=== PATIENT | female | born 1950 | race Caucasian/White ===

== ENCOUNTER → 2017-05-24 | Outpatient (CLI) | payer BC ==
--- NOTE | 2017-05-28 06:58 | MM ---
Reason for exam: screening (asymptomatic). Last mammogram was performed 1 year ago. History: Patient is postmenopausal. Took estrogen for 2 months beginning at age 50. Physical Findings: A clinical breast exam by your physician is recommended on an annual basis and results should be correlated with mammographic findings. MG Screening Mammo w CAD Bilateral CC and MLO view(s) were taken. Prior study comparison: May 23, 2016, bilateral MG screening mammo w CAD. March 18, 2015, bilateral MG screening mammo w CAD. The breast tissue is almost entirely fat. No significant changes when compared with prior studies. ASSESSMENT: Benign, BI-RAD 2 RECOMMENDATION: Routine screening mammogram of both breasts in 1 year.
== END | disposition home or self-care (01) ==
LOC: RADMAMWWP 07:01
PROVIDERS: ATTEND Internal Medicine Geriatric Medicine
DX: Z12.31 Encounter for screening mammogram for malignant neoplasm of breast (principal)

== ENCOUNTER → 2018-06-02 | Outpatient (CLI) | payer MEDICARE ==
--- NOTE | 2018-06-04 11:59 | MM ---
Reason for exam: screening (asymptomatic). Last mammogram was performed 1 year ago. History: Patient is postmenopausal. Took estrogen for 2 months beginning at age 50. Physical Findings: A clinical breast exam by your physician is recommended on an annual basis and results should be correlated with mammographic findings. MG 3D Screening Mammo W/Cad Bilateral CC and MLO view(s) were taken. Prior study comparison: May 24, 2017, bilateral MG screening mammo w CAD. May 23, 2016, bilateral MG screening mammo w CAD. There are scattered fibroglandular densities. No suspicious abnormality. No significant changes when compared with prior studies. ASSESSMENT: Negative, BI-RAD 1 RECOMMENDATION: Routine screening mammogram of both breasts in 1 year.
== END | disposition home or self-care (01) ==
LOC: RADMAMWWP 07:33
PROVIDERS: ATTEND Obstetrics & Gynecology
DX: Z12.31 Encounter for screening mammogram for malignant neoplasm of breast (principal)
CPT/HCPCS: 77063; 77067

== ENCOUNTER → 2019-06-08 | Outpatient (CLI) | payer MEDICARE ==
--- NOTE | 2019-06-09 10:45 | MM ---
Reason for exam: screening (asymptomatic). Last mammogram was performed 1 year ago. History: Patient is postmenopausal. Took estrogen for 2 months beginning at age 50. Physical Findings: A clinical breast exam by your physician is recommended on an annual basis and results should be correlated with mammographic findings. MG 3D Screening Mammo W/Cad Bilateral CC and MLO view(s) were taken. Prior study comparison: June 02, 2018, bilateral MG 3d screening mammo w/cad. May 24, 2017, bilateral MG screening mammo w CAD. There are scattered fibroglandular densities. No suspicious abnormality. No significant changes when compared with prior studies. ASSESSMENT: Negative, BI-RAD 1 RECOMMENDATION: Routine screening mammogram of both breasts in 1 year.
== END | disposition home or self-care (01) ==
LOC: RADMAMWWP 07:47
PROVIDERS: ATTEND Obstetrics & Gynecology
DX: Z12.31 Encounter for screening mammogram for malignant neoplasm of breast (principal)
CPT/HCPCS: 77063; 77067

== ENCOUNTER → 2019-06-11 | Outpatient (CLI) | payer MEDICARE ==
--- NOTE | 2019-06-11 22:00 | XR ---
EXAMINATION TYPE: XR chest 2V DATE OF EXAM: 06/11/2019 COMPARISON: NONE HISTORY: Cough. Bronchitis per order. TECHNIQUE: Frontal and lateral views of the chest are obtained. FINDINGS: There is no focal air space opacity, pleural effusion, or pneumothorax seen. The cardiac silhouette size is within normal limits. The osseous structures are intact. IMPRESSION: No suspicious acute pulmonary process.
== END | disposition home or self-care (01) ==
LOC: RADXRMAIN 16:20
PROVIDERS: ATTEND Internal Medicine Geriatric Medicine
DX: J40 Bronchitis, not specified as acute or chronic (principal)
CPT/HCPCS: 71046

== ENCOUNTER → 2019-07-10 | Outpatient (CLI) | payer MEDICARE ==
[2019-07-10 16:35] LABS: Albumin 4.8 g/dL (3.80-4.90); Albumin/Globulin Ratio 2.4 (1.60-3.17); Anion Gap 9.7 mmol/L (4.00-12.00); BUN/Creat Ratio 27.5 Ratio (12.00-20.00); Calcium 10.5 mg/dL (8.7-10.3); Carbon Dioxide 26.3 mmol/L (21.6-31.8); Chol/HDL Ratio 4.62; LDL Cholesterol,Calculated 98.8 mg/dL (0.0-131.0); Non-African American GFR(CKD) 76.8 (60.0-200.0); Potassium 4.2 mmol/L (3.5-5.5); Total Bilirubin 0.5 mg/dL (0.2-1.2); Total Protein 6.8 g/dL (6.2-8.2); VLDL Calculation 35.2 mg/dL (5.00-40.00)
[2019-07-10 17:12] LABS: Hemoglobin A1C 5.8 % (4.0-6.0)
== END | disposition home or self-care (01) ==
LOC: LABWHC1 08:41
PROVIDERS: ATTEND Internal Medicine Geriatric Medicine
DX: Z00.00 Encounter for general adult medical examination without abnormal findings (principal); E78.2 Mixed hyperlipidemia; E83.52 Hypercalcemia; E03.9 Hypothyroidism, unspecified; R73.9 Hyperglycemia, unspecified
CPT/HCPCS: 36415; 80053; 80061; 82550; 83036; 83970; 84443

== ENCOUNTER → 2020-02-09 | Outpatient (CLI) | payer MEDICARE ==
--- NOTE | 2020-02-09 08:37 | US ---
EXAMINATION TYPE: US abdomen complete DATE OF EXAM: 02/09/2020 COMPARISON: US 2013 CLINICAL HISTORY: K80.50 Calculus of bile duct without cholangitis. Patient states Dr. Jones said she has an enlarged gallbladder, patient states no abdomen pain or other symptoms. EXAM MEASUREMENTS: Liver Length: 15.9 cm Gallbladder Wall: 0.2 cm CBD: 0.4 cm Spleen: 12.3 cm Right Kidney: 9.0 x 4.9 x 5.1 cm Left Kidney: 10.9 x 5.2 x 5.6 cm Pancreas: visualized portions wnl, limited by overlying midline bowel gas Liver: attenuating, increased echogenicity with decreased visualization of vessels suggestive of fat ty infiltrate, heterogeneous with 1.6cm hypoechoic area adjacent to gallbladder, probable focal sparr ing Gallbladder: low level echoes seen within dependant portion possible sludge. Evidence for sonographic Ghosh's sign: no CBD: visualized portions wnl, limited by overlying bowel gas Spleen: wnl Right Kidney: wnl Left Kidney: wnl Upper IVC: wnl Abd Aorta: wnl The visualized liver is heterogeneously hyperechoic similar to prior. Evaluation for focal masses sub optimal due to the heterogeneity. Finding likely an basis of diffuse fatty infiltration. The intrahep atic portion of the IVC and visualized abdominal aorta are within normal limits. There is no evidenc e of shadowing mobile cholelithiasis. No suspicious gallbladder dilatation. Common bile duct is unre markable. The visualized portions of the pancreas are homogenous. The spleen is unremarkable. Kidn eys are symmetric and free of hydronephrosis. No renal lesions are seen. IMPRESSION: No suspicious distention of gallbladder or shadowing mobile gallstones. Fatty infiltratio n of liver redemonstrated.
[2020-02-09 08:38] LABS: Basophils # (A) 0.1 k/uL (0-0.2); Basophils % (A) 1 %; Eosinophils # (A) 0.2 k/uL (0-0.7); Eosinophils % (A) 3 %; HCT 44.7 % (34.0-46.0); HGB 14.5 gm/dL (11.4-16.0); Lymphocytes # (A) 2.8 k/uL (1.0-4.8); Lymphocytes % (A) 43 %; MCH 28.7 pg (25.0-35.0); MCHC 32.6 g/dL (31.0-37.0); MCV 88.1 fL (80.0-100.0); Mean Platelet Volume 8.7; Monocytes # (A) 0.3 k/uL (0-1.0); Monocytes % (A) 4 %; Neutrophils % (A) 46 %; Platelet Count 228 k/uL (150-450); RBC 5.07 m/uL (3.80-5.40); WBC 6.5 k/uL (3.8-10.6)
[2020-02-09 08:56] LABS: ALT 45 U/L (4-34); AST 39 U/L (14-36); African American GFR (CKD) >90 (>60 ml/min/1.73 sqM); Albumin 4.5 g/dL (3.5-5.0); Alkaline Phosphatase 37 U/L (38-126); Anion Gap 11 mmol/L; Blood Urea Nitrogen 19 mg/dL (7-17); Calcium 9.6 mg/dL (8.4-10.2); Carbon Dioxide 26 mmol/L (22-30); Chloride 104 mmol/L (98-107); Glucose 118 mg/dL (74-99); Non-African American GFR(CKD) >90 (>60 ml/min/1.73 sqM); Potassium 4.5 mmol/L (3.5-5.1); Sodium 141 mmol/L (137-145); Total Bilirubin 0.5 mg/dL (0.2-1.3); Total Protein 7.3 g/dL (6.3-8.2)
[2020-02-09 09:12] LABS: T4, Free (Free Thyroxine) 0.94 ng/dL (0.78-2.19)
== END | disposition home or self-care (01) ==
LOC: RADUSWWP 07:27
PROVIDERS: ATTEND Internal Medicine Geriatric Medicine
DX: K76.0 Fatty (change of) liver, not elsewhere classified (principal); K80.50 Calculus of bile duct without cholangitis or cholecystitis without obstruction; E03.9 Hypothyroidism, unspecified
CPT/HCPCS: 36415; 76700; 80053; 83036; 84439; 84443; 85025

== ENCOUNTER → 2020-06-08 | Outpatient (CLI) | payer MEDICARE ==
--- NOTE | 2020-06-08 15:09 | BD ---
EXAMINATION TYPE: Axial Bone Density DATE OF EXAM: 06/08/2020 COMPARISON: 05/23/2016 CLINICAL HISTORY: Osteoporosis border. Postmenopausal female. Height: 66.5 IN Weight: 208 LBS FRAX RISK QUESTIONS: Secondary Osteoporosis: 5. Chronic liver disease: PREVIOUS HEPATITIS 1977 RISK FACTORS HISTORY OF: History of Wrist Fracture: SANDIP AGE 10 Family History of Osteoporosis: YES MOTHER Active: YES Postmenopausal woman: TOTAL HYST AGE 52 MEDICATIONS: Additional Medications: VIT D, ENALAPRIL INDAPAMIDE, ATORVASTATIN, FISH OIL,PROBIOTIC, BIOTIN, CENTRU M, EXAM MEASUREMENTS: Bone mineral densitometry was performed using the Flowboard System. Bone mineral density as measured about the Lumbar spine is: ----- L1-L4(G/cm2): 1.391 T Score Values are as follows: ----- L2: 0.7 ----- L3: 2.2 ----- L4: 2.3 ----- L1-L4: 1.8 Bone mineral density has: Increased 0.2% since study of: 05/23/2016 Bone mineral density about the R hip (g/cm2): 1.073 Bone mineral density about the L hip (g/cm2): 1.131 T Score values are as follows: -----R Neck: 0.2 -----L Neck: 0.7 -----R Total: 1.5 -----L Total: 2.0 Bone mineral density has: Decreased -1.7% since study of: 05/23/2016 IMPRESSION: Normal (Values between +1 and -1 indicate normal bone mass). Consider repeating this study in 5 year s or sooner if there is some new clinical indication. NOTE: T-SCORE=SD OF THE YOUNG ADULT MEAN.
== END | disposition home or self-care (01) ==
LOC: RADBDWWP 08:33
PROVIDERS: ATTEND Internal Medicine Geriatric Medicine
DX: M81.0 Age-related osteoporosis without current pathological fracture (principal)
CPT/HCPCS: 77080

== ENCOUNTER → 2020-06-13 | Outpatient (CLI) | payer MEDICARE ==
--- NOTE | 2020-06-14 10:38 | MM ---
Reason for exam: screening (asymptomatic). Last mammogram was performed 1 year ago. History: Patient is postmenopausal. Took estrogen for 2 months beginning at age 50. Physical Findings: A clinical breast exam by your physician is recommended on an annual basis and results should be correlated with mammographic findings. MG 3D Screening Mammo W/Cad Bilateral CC and MLO view(s) were taken. Prior study comparison: June 08, 2019, bilateral MG 3d screening mammo w/cad. June 02, 2018, bilateral MG 3d screening mammo w/cad. There are scattered fibroglandular densities. Finding #1: There is a 5 mm equal density (isodense), lobulated mass in the lower outer quadrant of the left breast. Finding #2: There are typically benign calcifications. There is a chronic nodularity bilaterally, stable. ASSESSMENT: Incomplete: need additional imaging evaluation, BI-RAD 0 RECOMMENDATION: Special view mammogram of the left breast. If lesion persists on supplemental views, image directed ultrasound is recommended. [facility] will attempt to contact patient to return for supplemental views and ultrasound if indicated.
== END | disposition home or self-care (01) ==
LOC: RADMAMWWP 09:33
PROVIDERS: ATTEND Obstetrics & Gynecology
DX: Z12.31 Encounter for screening mammogram for malignant neoplasm of breast (principal)
CPT/HCPCS: 77063; 77067

== ENCOUNTER → 2020-06-22 | Outpatient (CLI) | payer MEDICARE ==
--- NOTE | 2020-06-23 08:58 | MM ---
Reason for exam: additional evaluation requested from abnormal screening. Last mammogram was performed less than 1 month ago. History: Patient is postmenopausal. Took estrogen for 2 months beginning at age 50. Physical Findings: Nurse did not find any significant physical abnormalities on exam. MG 3D Work Up W/Cad LT Spot compression CC, spot compression MLO, and LM view(s) were taken of the left breast. Prior study comparison: June 13, 2020, bilateral MG 3d screening mammo w/cad. June 08, 2019, bilateral MG 3d screening mammo w/cad. There are scattered fibroglandular densities. Finding: There is an equal density (isodense), circumscribed lobulated mass located 3 cm from the nipple in the outer quadrant, anterior position of the left breast CC view. New finding since June 08, 2019. These results were verbally communicated with the patient and result sheet given to the patient on 06/22/20. ASSESSMENT: Incomplete: need additional imaging evaluation, BI-RAD 0 RECOMMENDATION: Ultrasound of the left breast.
--- NOTE | 2020-06-23 09:00 | USB ---
Reason for exam: additional evaluation requested from abnormal screening. History: Patient is postmenopausal. Took estrogen for 2 months beginning at age 50. US Breast Workup Limited LT Left limited breast ultrasound including focal area of concern, retroareolar and axilla demonstrates a 5 x 3 x 4mm oval, isoechoic, solid lesion at 3 o'clock. These results were verbally communicated with the patient and result sheet given to the patient on 06/22/20. ASSESSMENT: Suspicious, BI-RAD 4 RECOMMENDATION: Ultrasound core biopsy of the left breast. (3 o'clock zone A) Called Dr. Salter's office with mammographic findings and has scheduled an appointment for the patient for 07/27/20 at 7:[address] Cristina. Biopsy scheduled for 07/04/20 at 1:00. PRELIMINARY REPORT CALLED AND FAXED TO DR. CRISTINA ON 06/23/20.
== END | disposition home or self-care (01) ==
LOC: RADMAMWWP 13:27
PROVIDERS: ATTEND Obstetrics & Gynecology
DX: R92.8 Other abnormal and inconclusive findings on diagnostic imaging of breast (principal)
CPT/HCPCS: 77065; 76642; G0279; 77061

== ENCOUNTER → 2020-07-04 | Day surgery (SDC) | payer MEDICARE ==
[2020-07-04 12:33] VITALS: RESP 16
[2020-07-04 14:23] VITALS: BP 119/81; PULSE 72; TEMP 98
--- NOTE | 2020-07-04 16:09 | USB ---
EXAMINATION TYPE: US biopsy breast VAD LT, MG diagnostic mammo LT wo CAD DATE OF EXAM: 07/04/2020 CLINICAL HISTORY: R92.8 ABN MAMMO. TECHNIQUE: Ultrasound guided core biopsy of left 3:00 breast. COMPARISON: NONE FINDINGS: The procedure of ultrasound guided core biopsy was explained to the patient. Benefits, alternatives, and risks were discussed. An informed consent was then obtained. The patient was placed in supine positioning for imaging and for the procedure. The overlying skin was prepped and draped in usual sterile fashion. Lidocaine buffered with bicarbonate was used as anesthetic into the skin and subcutaneous tissue up to area of concern in the left 3:00 breast. Under ultrasound guidance, a 12-gauge vacuum assisted biopsy gun device was used to obtain 4 core samples. Following this, a biopsy clip was left in lesion. Post procedural mammogram demonstrates appropriate deployment of clip device. The patient tolerated the procedure well without any immediate complication. The patient was kept in the radiology department for short stay after the procedure and then discharged home in stable condition. IMPRESSION: Successful, uncomplicated ultrasound guided core biopsy of area of concern in the left 3:00 breast, full pathology results to follow. Pathology Results: Malignant LEFT BREAST, CORE BIOPSY: Mucinous ductal adenocarcinoma, Grade 1 (see Surgical Pathology Cancer Case Summary and comment). Intermediate grade DCIS present. Recommendation Therapy and follow up as indicated. MTDD
== END ==
LOC: RADUSWWP 11:57
PROVIDERS: ATTEND Surgery
DX: C50.812 Malignant neoplasm of overlapping sites of left female breast (principal); Z17.0 Estrogen receptor positive status [ER+]; Z88.2 Allergy status to sulfonamides
CPT/HCPCS: 88305; 88342; 88341; 77065; 19083; A4648; J2001

== ENCOUNTER → 2020-09-21 | Outpatient (CLI) | payer MEDICARE ==
--- NOTE | 2020-09-21 20:47 | EST ---
EXERCISE STRESS DATE OF SERVICE: September 21, 2020. INDICATION Chest pain. AGE: 69 SEX: F HT: 5'7 " WT: 195 lbs. PROTOCOL: Isak STAGE: 2 DURATION OF EXERCISE: 5:59 HEART RATE REST: 90 BLOOD PRESSURE REST: 155/96 MAXIMUM HEART RATE ACHIEVED: 159 MAXIMUM BLOOD PRESSURE: 193/97 85% MPHR: 130 100% MPHR: 153 METS: 7.1 STRESS DATA: Heart rate 90. Pressure is 155/96 mmHg. Baseline EKG showed sinus mechanism. The patient exercised on the treadmill according to Isak protocol for a total of 5 minutes and 59 seconds and achieved 7.1 METS. Max heart rate was 159, which is about 104% of maximum predicted heart rate and maximum blood pressure was 209/85 mmHg. Clinically, the patient did not have any symptoms of chest pain or chest discomfort and the EKG did not show any significant ST or T-wave abnormalities concerning for ischemia. On recovery, the patient did have about 0.[address]-segment changes. CONCLUSION: 1. Average exercise tolerance. 2. Mild EKG changes in response to exercise. MMODL / IJN: [id number] /
== END | disposition home or self-care (01) ==
LOC: RADNMMAIN 08:28
PROVIDERS: ATTEND Thoracic Surgery (Cardiothoracic Vascular Surgery)
DX: R07.9 Chest pain, unspecified (principal)
CPT/HCPCS: 93017

== ENCOUNTER → 2020-10-24 | Outpatient (CLI) | payer MEDICARE ==
[2020-10-24 11:27] LABS: African American GFR (CKD) >90 (>60 ml/min/1.73 sqM); Blood Urea Nitrogen 16 mg/dL (7-17); Non-African American GFR(CKD) >90 (>60 ml/min/1.73 sqM)
--- NOTE | 2020-10-27 15:05 | CT ---
EXAMINATION TYPE: CT chest w con DATE OF EXAM: 10/24/2020 COMPARISON: CT chest from outside institution dated 07/27/2020 HISTORY: follow up lung nodule CT DLP: 526.2 mGycm Automated exposure control for dose reduction was used. CONTRAST: CT scan of the chest is performed with IV Contrast, patient injected with 100 mL of Isovue 300. FINDINGS: The left thyroid is absent as on prior exam, right thyroid shows some associated calcificat ions, heterogeneous density similar to prior LUNGS: The lungs are stable, nodule posterior to the left heart shows smooth margins and measures edison roximately 17 mm in greatest AP dimension and is likely unchanged accounting for technique. Additiona l nodularity in the right lung is also stable, axial image #30 not mentioned on prior report, axial i mage #33 shows a 7 mm nodule, subpleural nodule described in prior report in the right upper chest is not well seen. There is no pleural effusion or pneumothorax seen. The tracheobronchial tree is simmons nt. MEDIASTINUM: There are no greater than 1 cm hilar or mediastinal lymph nodes. No pericardial effusi on is seen. There is some prominence of pulmonary artery, consider pulmonary artery hypertension, AORTA: No additional significant abnormality is seen. OTHER: Left breast mass with associated surgical clips are present, liver shows low attenuation poss ibly due to hepatic steatosis. Left axillary node dissection changes are present. IMPRESSION: Indeterminate pulmonary nodules. Postop changes. Additional findings above.
== END | disposition home or self-care (01) ==
LOC: RADCTMAIN 10:38
PROVIDERS: ATTEND Internal Medicine Hematology & Oncology
DX: C50.412 Malignant neoplasm of upper-outer quadrant of left female breast (principal); R91.8 Other nonspecific abnormal finding of lung field; I10 Essential (primary) hypertension
CPT/HCPCS: 82565; 84520; 71260; 36415; Q9967

== ENCOUNTER → 2021-02-07 | Outpatient (CLI) | payer MEDICARE ==
--- NOTE | 2021-02-07 09:26 | CT ---
EXAMINATION TYPE: CT chest wo con DATE OF EXAM: 02/07/2021 COMPARISON: Chest CT October 24, [address] July 27, 2020 HISTORY: Left-sided breast cancer treated October [address] DLP: 651 mGycm. Automated Exposure Control for Dose Reduction was Utilized. TECHNIQUE: CT scan of the thorax is performed without IV contrast. FINDINGS: LUNGS: Fairly stable 1.4 x 1.1 cm medial left lower lobe nodule axial image 33 from prior studies. Li near scarring or atelectasis lateral to this is with slightly more nodular thickening that contains s ome calcification or possibly some sutures near Axial image 32. Correlate clinically. Right lung howard ins clear. Stable 5 to 6 mm right central nodule mid to lower aspect axial image 30. New smaller ante rior right lower lung nodule axial image 29 measure up to 4 mm. MEDIASTINUM: Lack of IV contrast is noted to limit evaluation for mediastinal and especially hilar ad enopathy. There are no definitive new greater than 1 cm mediastinal lymph nodes. No cardiomegaly or pericardial effusion is seen. Persistent ascending aortic aneurysm up to 4.2 cm axial image 21. Mild -to-moderate aortic calcification. OTHER: Liver diffusely low dense consistent with diffuse fatty infiltration. Slight scoliotic curvatu re with mild/moderate multilevel spurring in the spine. Surgical clips with central low density favor ing postsurgical seroma left breast. Asymmetric left-sided skin thickening presumed posttreatment jyotsna nge. Surgical changes left axillary region redemonstrated. IMPRESSION: Stable dominant nodules. New smaller right basilar nodules are suspicious. Left basilar findings of indeterminate etiology. Continued short-term CT and/or PET CT follow-up advised.
== END | disposition home or self-care (01) ==
LOC: RADCTMAIN 08:57
PROVIDERS: ATTEND Thoracic Surgery (Cardiothoracic Vascular Surgery)
DX: R91.8 Other nonspecific abnormal finding of lung field (principal); Z85.3 Personal history of malignant neoplasm of breast
CPT/HCPCS: 71250

== ENCOUNTER 2021-03-17 10:11 | Day surgery (SDC) | payer MEDICARE ==
[2021-03-15 12:59] VITALS: BMI 29.6
[~2021-03-17 10:11] MED LIST: LACTATED RINGERS 1,000 ML IV SCH
[2021-03-17 10:31] VITALS: TEMP 97.4
[2021-03-17] MEDS ORDERED: LIDOCAINE 1% INJ 10MG/ML (20 ML MDV) ONE (11:44)
[2021-03-17] MEDS ORDERED: PROPOFOL 10 MG/ML 20 ML VIAL IV ONE (11:44)
--- NOTE | 2021-03-17 12:04 | P.PCN ---
Date of Procedure: 03/17/21 Procedure(s) Performed: BRIEF HISTORY: Patient is a 70-year-old pleasant white female scheduled for an elective colonoscopy as a part of evaluation of prior history of colon polyps. PROCEDURE PERFORMED: Colonoscopy. PREOPERATIVE DIAGNOSIS: History of colon polyps. IV sedation per Anesthesia. PROCEDURE: After informed consent was obtained, the patient, was brought into the endoscopy unit. IV sedation was administered by Anesthesia under continuous monitoring. Digital rectal examination was normal. Initially the Olympus CF-160 flexible video colonoscope was then inserted in the rectum, gradually advanced into the cecum without any difficulty. Careful examination was performed as the scope was gradually being withdrawn. Ileocecal valve and the appendiceal orifice were visualized and appeared normal. Prep was excellent. Mucosa of the cecum, ascending colon appeared normal. In the transverse colon there was a 3-4 mm polyp that was removed by cold biopsy. Rest of the, transverse colon, descending colon, sigmoid colon, and rectum appeared normal. Sigmoid diverticulosis seen. Retroflexion was performed in the rectum and no lesions were seen. The patient tolerated the procedure well. IMPRESSION: 3-4 mm polyp in the transverse colon status post biopsy Moderate sigmoid diverticulosis RECOMMENDATIONS: Findings of this examination were discussed with the patient as well as her family. She was advised to follow with the biopsy results. If the biopsy reveals adenoma she can have a repeat colonoscopy in 5 years.
[2021-03-17 12:28] VITALS: BP 117/79; PULSE 56; RESP 16
== END 2021-03-17 12:55 | disposition home or self-care (01) ==
LOC: ORWHC2ENDO 10:11
PROVIDERS: ATTEND Internal Medicine Gastroenterology
DX: Z12.11 Encounter for screening for malignant neoplasm of colon (principal); K63.5 Polyp of colon; K57.30 Diverticulosis of large intestine without perforation or abscess without bleeding; Z86.010 Personal history of colon polyps; I10 Essential (primary) hypertension; E78.5 Hyperlipidemia, unspecified; Z90.710 Acquired absence of both cervix and uterus; Z98.890 Other specified postprocedural states; Z85.3 Personal history of malignant neoplasm of breast; E89.0 Postprocedural hypothyroidism; Z79.899 Other long term (current) drug therapy; Z88.2 Allergy status to sulfonamides
CPT/HCPCS: 88305; 45380; J2001; J2704

== ENCOUNTER → 2021-05-01 | Outpatient (CLI) | payer MEDICARE ==
[2021-05-01 15:17] LABS: ALT 53 U/L (8-44); AST 36 U/L (13-35); African American GFR (CKD) 106.3 (60.0-200.0); Albumin 4.6 g/dL (3.8-4.9); Albumin/Globulin Ratio 1.57 (1.60-3.17); Alkaline Phosphatase 42 U/L (41-126); BUN/Creat Ratio 24.53 Ratio (12.00-20.00); Blood Urea Nitrogen 15.7 mg/dL (9.0-27.0); Chloride 101 mmol/L (96-109); Chol/HDL Ratio 5.72 Ratio; Globulin 2.9 g/dL (1.6-3.3); Glucose 100 mg/dL (70-110); LDL Cholesterol,Calculated 111.5 mg/dL (0.0-131.0); Non-African American GFR(CKD) 91.7 (60.0-200.0); Potassium 4.5 mmol/L (3.5-5.5); Sodium 138 mmol/L (135-145); Total Protein 7.5 g/dL (6.2-8.2)
[2021-05-01 15:41] LABS: Basophils # (A) 0.06 X 10*3/uL (0.00-0.10); Basophils % (A) 0.9 %; Eosinophils # (A) 0.23 X 10*3/uL (0.04-0.35); Eosinophils % (A) 3.6 %; HCT 42.7 % (37.2-46.3); HGB 13.6 g/dL (12.0-15.0); Lymphocytes # (A) 2.54 X 10*3/uL (0.90-5.00); Lymphocytes % (A) 39.4 %; MCH 28.5 pg (27.0-32.0); MCHC 31.9 g/dL (32.0-37.0); MCV 89.5 fL (80.0-97.0); Mean Platelet Volume 11.5 fL (9.5-12.2); Monocytes # (A) 0.44 X 10*3/uL (0.20-1.00); Monocytes % (A) 6.8 %; Neutrophils # (A) 3.12 X 10*3/uL (1.80-7.70); Neutrophils % (A) 48.5 %; Platelet Count 332 X 10*3/uL (140-440); RBC 4.77 X 10*6/uL (4.10-5.20); RDW 13.3 % (11.5-14.5); WBC 6.44 X 10*3/uL (4.50-10.00)
== END | disposition home or self-care (01) ==
LOC: LABWHC1 10:09
PROVIDERS: ATTEND Internal Medicine Geriatric Medicine
DX: Z00.00 Encounter for general adult medical examination without abnormal findings (principal); E78.2 Mixed hyperlipidemia; R73.9 Hyperglycemia, unspecified; R91.1 Solitary pulmonary nodule
CPT/HCPCS: 36415; 80053; 80061; 83036; 84443; 85025

== ENCOUNTER → 2021-05-16 | Outpatient (CLI) | payer MEDICARE ==
--- NOTE | 2021-05-16 08:21 | CT ---
EXAMINATION TYPE: CT chest wo con DATE OF EXAM: 05/16/2021 COMPARISON: 02/07/2021 HISTORY: H/O Breast CA CT DLP: 454.40 mGycm. Automated Exposure Control for Dose Reduction was Utilized. TECHNIQUE: CT scan of the thorax is performed without IV contrast. FINDINGS: LUNGS: The previously noted 1.4 x 1.1 cm left lower lobe pulmonary nodule measures 1.8 x 1.0 cm. Adjacent ar eas of subsegmental calcification, nodularity and consolidation are similar to the prior exam. There is a stable 5 to 6 mm right mid to lower lung pulmonary nodule unchanged from prior exam. 4 mm nodule anterior right upper lobe also appears stable. No pleural effusion or pneumothorax. Additional areas of subsegmental consolidation left lower lobe is most typical of atelectasis. Additional 2 mm nodule anterior segment right upper lobe stable MEDIASTINUM: Lack of IV contrast is noted to limit evaluation for mediastinal and especially hilar ad enopathy. There are no definitive greater than 1 cm hilar or mediastinal lymph nodes. Coronary artery calcification noted. Heart size mildly enlarged. OTHER: Right lobe of thyroid appears enlarged with calcification. Skin thickening and abnormal densit y or mass in left breast similar to prior exam. Attenuation involving caudate lobe of the liver may r epresent an area of focal fatty sparing similar to prior exam. Hypertrophic and degenerative changes spine.. IMPRESSION: 1. Left lower lobe the nodule previously measured 1.4 cm in greatest axis and now measures 1.8 cm com patible with mild interval increase in size. 2. Right-sided pulmonary nodules measuring subcentimeter in size stable. No new nodules. There are 3 skin thickening and abnormal attenuation involving the left breast stable from prior exam correlate f or history of previous surgery or mass.
== END | disposition home or self-care (01) ==
LOC: RADCTMAIN 06:49
PROVIDERS: ATTEND Thoracic Surgery (Cardiothoracic Vascular Surgery)
DX: R91.8 Other nonspecific abnormal finding of lung field (principal); Z85.3 Personal history of malignant neoplasm of breast
CPT/HCPCS: 71250

== ENCOUNTER → 2021-05-30 | Outpatient (CLI) | payer MEDICARE ==
[2021-05-30 19:21] LABS: African American GFR (CKD) 108.5 (60.0-200.0); Albumin 4.5 g/dL (3.8-4.9); Albumin/Globulin Ratio 1.88 (1.60-3.17); Anion Gap 13.1 mmol/L (10.00-18.00); Carbon Dioxide 25.9 mmol/L (20.0-27.5); Globulin 2.4 g/dL (1.6-3.3); Non-African American GFR(CKD) 93.7 (60.0-200.0); Total Bilirubin 0.3 mg/dL (0.30-1.20); Total Protein 6.9 g/dL (6.2-8.2)
== END | disposition home or self-care (01) ==
LOC: LABWHC1 11:07
PROVIDERS: ATTEND Internal Medicine Geriatric Medicine
DX: E83.52 Hypercalcemia (principal)
CPT/HCPCS: 36415; 80053; 83970

== ENCOUNTER → 2022-02-06 | Outpatient (CLI) | payer MEDICARE | END | disposition home or self-care (01) | LOC: LABWHC1 12:03 | PROVIDERS: ATTEND Internal Medicine Geriatric Medicine | DX: C50.912 Malignant neoplasm of unspecified site of left female breast (principal); K76.0 Fatty (change of) liver, not elsewhere classified; R73.9 Hyperglycemia, unspecified; E78.2 Mixed hyperlipidemia; K58.9 Irritable bowel syndrome, unspecified | CPT/HCPCS: 36415; 80053; 80061; 83036; 84443; 85025 ==

== ENCOUNTER → 2022-02-12 | Outpatient (CLI) | payer MEDICARE ==
[2022-02-12 14:46] LABS: Basophils # (A) 0.04 X 10*3/uL (0.00-0.10); Basophils % (A) 0.6 %; Eosinophils # (A) 0.18 X 10*3/uL (0.04-0.35); Eosinophils % (A) 2.9 %; HCT 42.5 % (37.2-46.3); HGB 14.2 g/dL (12.0-15.0); Immature Grans, Automated 0.5 %; Lymphocytes # (A) 2.19 X 10*3/uL (0.90-5.00); Lymphocytes % (A) 35.5 %; MCH 29.6 pg (27.0-32.0); MCHC 33.4 g/dL (32.0-37.0); MCV 88.7 fL (80.0-97.0); Monocytes # (A) 0.48 X 10*3/uL (0.20-1.00); Monocytes % (A) 7.8 %; NRBC Per 100 WBC 0 /100 WBCS (0.0-0.0); Neutrophils # (A) 3.25 X 10*3/uL (1.80-7.70); Neutrophils % (A) 52.7 %; Platelet Count 248 X 10*3/uL (140-440); RBC 4.79 X 10*6/uL (4.10-5.20); RDW 13.8 % (11.5-14.5); WBC 6.17 X 10*3/uL (4.50-10.00)
[2022-02-12 14:56] LABS: ALT 51 U/L (8-44); AST 38 U/L (13-35); African American GFR (CKD) 102.5 (60.0-200.0); Albumin 4.7 g/dL (3.8-4.9); Albumin/Globulin Ratio 1.68 (1.60-3.17); Alkaline Phosphatase 40 U/L (41-126); BUN/Creat Ratio 21.71 Ratio (12.00-20.00); Blood Urea Nitrogen 15.2 mg/dL (9.0-27.0); Calcium 10.1 mg/dL (8.7-10.3); Chloride 100 mmol/L (96-109); Chol/HDL Ratio 5.96 Ratio; Globulin 2.8 g/dL (1.6-3.3); Glucose 117 mg/dL (70-110); LDL Cholesterol,Calculated 116.4 mg/dL (0.0-131.0); Non-African American GFR(CKD) 88.4 (60.0-200.0); Potassium 3.8 mmol/L (3.5-5.5); Sodium 138 mmol/L (135-145); Total Protein 7.5 g/dL (6.2-8.2)
== END | disposition home or self-care (01) ==
LOC: LABWHC1 08:50
PROVIDERS: ATTEND Internal Medicine Geriatric Medicine
DX: C50.912 Malignant neoplasm of unspecified site of left female breast (principal); K76.0 Fatty (change of) liver, not elsewhere classified; R73.9 Hyperglycemia, unspecified; E78.2 Mixed hyperlipidemia; K58.9 Irritable bowel syndrome, unspecified
CPT/HCPCS: 36415; 80053; 80061; 83036; 84443; 85025

== ENCOUNTER → 2022-05-14 | Outpatient (CLI) | payer MEDICARE ==
--- NOTE | 2022-05-14 08:45 | CT ---
EXAMINATION TYPE: CT chest wo con DATE OF EXAM: 05/14/2022 COMPARISON: 05/16/2021 HISTORY: Lung Nodule CT DLP: 491.[address] of the chest was performed with lung and mediastinal window settings submitted. The la ck of contrast limits evaluation of the vascular, mediastinal and parenchymal structures including th e upper abdomen. LUNGS: 1.1 cm nodule left lower lobe with internal calcifications and surrounding parenchymal scarrin g versus prior measurement of 1.8 cm. No additional nodules seen. 5.6 mm nodule right lower lobe celia cent to the minor fissure is unchanged in size and is seen on image 31. 5.5 mm and 4.0 mm nodules right upper lobe image 29 are stable. MEDIASTINUM/JANETTE: Ascending thoracic aortic aneurysm of 4.5 cm. The heart is not enlarged. No eviden ce for mediastinal mass. No lymph nodes greater than 1cm. UPPER ABDOMEN: No significant abnormality is seen. OTHER: No significant other abnormality. IMPRESSION: 1. Stable nonspecific nodularity. Stability over a 2 year timeframe should be documented radiographi valerie.
== END | disposition home or self-care (01) ==
LOC: RADCTMAIN 08:01
PROVIDERS: ATTEND Internal Medicine Hematology & Oncology
DX: C50.412 Malignant neoplasm of upper-outer quadrant of left female breast (principal); I10 Essential (primary) hypertension; R91.8 Other nonspecific abnormal finding of lung field; Z71.3 Dietary counseling and surveillance
CPT/HCPCS: 71250

== ENCOUNTER → 2022-07-06 | Outpatient (CLI) | payer MEDICARE ==
[2022-07-06 15:32] LABS: ALT 50 U/L (8-44); AST 32 U/L (13-35); African American GFR (CKD) 104.2 (60.0-200.0); Albumin 4.6 g/dL (3.8-4.9); Albumin/Globulin Ratio 1.71 (1.60-3.17); Alkaline Phosphatase 41 U/L (41-126); BUN/Creat Ratio 21.02 Ratio (12.00-20.00); Calcium 10.5 mg/dL (8.7-10.3); Chloride 102 mmol/L (96-109); Chol/HDL Ratio 5.17 Ratio; Globulin 2.7 g/dL (1.6-3.3); Glucose 106 mg/dL (70-110); LDL Cholesterol,Calculated 104.8 mg/dL (0.0-131.0); Non-African American GFR(CKD) 89.9 (60.0-200.0); Potassium 4.3 mmol/L (3.5-5.5); Sodium 140 mmol/L (135-145); Total Protein 7.3 g/dL (6.2-8.2)
[2022-07-06 16:16] LABS: Basophils # (A) 0.06 X 10*3/uL (0.00-0.10); Basophils % (A) 0.9 %; Eosinophils # (A) 0.17 X 10*3/uL (0.04-0.35); Eosinophils % (A) 2.5 %; HCT 43.6 % (37.2-46.3); HGB 13.9 g/dL (12.0-15.0); Immature Grans, Automated 0.6 %; Lymphocytes % (A) 40.1 %; MCH 28.9 pg (27.0-32.0); MCHC 31.9 g/dL (32.0-37.0); MCV 90.6 fL (80.0-97.0); Mean Platelet Volume 11.7 fL (9.5-12.2); Monocytes # (A) 0.43 X 10*3/uL (0.20-1.00); Monocytes % (A) 6.4 %; NRBC Per 100 WBC 0 /100 WBCS (0.0-0.0); Neutrophils # (A) 3.34 X 10*3/uL (1.80-7.70); Neutrophils % (A) 49.5 %; Platelet Count 296 X 10*3/uL (140-440); RBC 4.81 X 10*6/uL (4.10-5.20); RDW 13.5 % (11.5-14.5); WBC 6.74 X 10*3/uL (4.50-10.00)
== END | disposition home or self-care (01) ==
LOC: LABWHC1 10:26
PROVIDERS: ATTEND Internal Medicine Geriatric Medicine
DX: C50.912 Malignant neoplasm of unspecified site of left female breast (principal); E78.2 Mixed hyperlipidemia; R73.9 Hyperglycemia, unspecified
CPT/HCPCS: 36415; 80053; 80061; 83036; 85025

== ENCOUNTER → 2022-11-12 | Outpatient (CLI) | payer MEDICARE ==
--- NOTE | 2022-11-12 11:08 | BD ---
EXAMINATION TYPE: Axial Bone Density DATE OF EXAM: 11/12/2022 CLINICAL HISTORY: 72 years old Female. ICD-10 CODE: C50.412 MALIG NEOPLASM OF UPPER-OUTER QUADRANT O F Height: 5 ft 7 in Weight: 212 FRAX RISK QUESTIONS: Alcohol (3 or more units per day): no Family History (Parent hip fracture): no Glucocorticoids (More than 3mos): no (Ex: prednisone, prednisolone, methylprednisolone, dexamethasone, and hydrocortisone). History of Fracture in Adulthood: no Secondary Osteoporosis: 1. Type 1 Diabetes: no 2. Hyperthyroidism: no 3. Menopause before 45: no 4. Malnutrition: no 5. Chronic liver disease: no Rheumatoid Arthritis: no Current Tobacco Use: no RISK FACTORS HISTORY OF: Surgery to Spine/Hip(right/left)/Wrist (right/left): no Family History of Osteoporosis: no Active: yes Diet low in dairy products/other sources of calcium: no Postmenopausal woman: yes Take estrogen and/or progesterone medications: no Lost more than 2 inches in height since high school: no Frequent falls: no Poor Health: good Hyperparathyroidism: no Adrenal Insufficiency: no MEDICATIONS: Additional Medications: enalapril, indapamide, metoprolol, Atorvastatin, anastrozole Additional History: breast cancer radiation 2020 EXAM MEASUREMENTS: Bone mineral densitometry was performed using the [employer] System. Bone mineral density as measured about the Lumbar spine is: ----- L1-L4(G/cm2): 1.429 T Score Values are as follows: ----- L1: 2.2 ----- L2: 0.9 ----- L3: 2.5 ----- L4: 2.4 ----- L1-L4: 2.1 Z Score Values are as follows: ----- L1: 2.8 ----- L2: 1.6 ----- L3: 3.1 ----- L4: 3.0 ----- L1-L4: 2.7 Bone mineral density has: increased 2.7 % since study of: 2020 Bone mineral density about the R hip (g/cm2): 1.039 Bone mineral density about the L hip (g/cm2): 1.082 T Score values are as follows: -----R Neck: 0.0 -----L Neck: 0.3 -----R Total: 1.3 -----L Total: 1.6 Z Score values are as follows: -----R Neck: 1.0 -----L Neck: 1.3 -----R Total: 2.0 -----L Total: 2.4 Bone mineral density has: decreased -3.1 % since study of: 2020 FRAX%s: The graph provided illustrates a 6.6 % chance for a major osteoporotic fx and a 0.3 % chance for the hips probability for fx in 10 years time. IMPRESSION: Normal (Values between +1 and -1 indicate normal bone mass). Consider repeating this study in 5 year s or sooner if there is some new clinical indication. NOTE: T-SCORE=SD OF THE YOUNG ADULT MEAN.
== END | disposition home or self-care (01) ==
LOC: RADBDWWP 07:55
PROVIDERS: ATTEND Internal Medicine Hematology & Oncology
DX: C50.412 Malignant neoplasm of upper-outer quadrant of left female breast (principal)
CPT/HCPCS: 77080

== ENCOUNTER → 2022-12-26 | Outpatient (CLI) | payer MEDICARE ==
[2022-12-26 17:44] LABS: ALT 60 U/L (8-44); AST 48 U/L (13-35); Albumin 4.7 d/dL (3.8-4.9); Albumin/Globulin Ratio 1.62 Ratio (1.60-3.17); Alkaline Phosphatase 41 U/L (41-126); Calcium 10.7 mg/dL (8.7-10.3); Carbon Dioxide 26.9 mmol/L (21.6-31.8); Chloride 99 mmol/L (96-109); Chol/HDL Ratio 5.75 Ratio; Globulin 2.9 d/dL (1.6-3.3); Glucose 98 mg/dL (70-110); LDL Cholesterol,Calculated 105.6 mg/dL (0.0-131.0); Potassium 4.4 mmol/L (3.5-5.5); Sodium 139 mmol/L (135-145); T4, Free (Free Thyroxine) 1.17 ng/dL (0.80-1.80); Total Bilirubin 0.5 mg/dL (0.3-1.2); Total Protein 7.6 d/dL (6.2-8.2)
[2022-12-26 17:53] LABS: Basophils # (A) 0.04 X 10*3/uL (0.00-0.10); Basophils % (A) 0.5 %; Eosinophils # (A) 0.18 X 10*3/uL (0.04-0.35); Eosinophils % (A) 2.4 %; HCT 46.3 % (37.2-46.3); HGB 14.7 d/dL (12.0-15.0); Lymphocytes # (A) 2.66 X 10*3/uL (0.90-5.00); Lymphocytes % (A) 35.6 %; MCH 28.8 pg (27.0-32.0); MCHC 31.7 d/dL (32.0-37.0); MCV 90.8 FL (80.0-97.0); Mean Platelet Volume 11.8 FL (9.5-12.2); Monocytes # (A) 0.48 X 10*3/uL (0.20-1.00); Monocytes % (A) 6.4 %; NRBC Per 100 WBC 0 X 10*3/uL (0.00-0.01); Neutrophils # (A) 4.08 X 10*3/uL (1.80-7.70); Neutrophils % (A) 54.7 %; Platelet Count 266 X 10*3/uL (140-440); RDW 13.9 % (11.5-14.5); WBC 7.47 X 10*3/uL (4.50-10.00)
== END | disposition home or self-care (01) ==
LOC: LABWHC1 10:14
PROVIDERS: ATTEND Internal Medicine Geriatric Medicine
DX: C50.912 Malignant neoplasm of unspecified site of left female breast (principal); E78.2 Mixed hyperlipidemia; E03.9 Hypothyroidism, unspecified; R73.9 Hyperglycemia, unspecified
CPT/HCPCS: 36415; 80053; 80061; 83036; 84439; 84443; 85025

== ENCOUNTER → 2023-05-30 | Outpatient (CLI) | payer MEDICARE ==
[2023-05-30 15:10] LABS: Basophils # (A) 0.07 X 10*3/uL (0.00-0.10); Basophils % (A) 0.9 %; Eosinophils # (A) 0.19 X 10*3/uL (0.04-0.35); Eosinophils % (A) 2.3 %; HCT 46.5 % (37.2-46.3); Lymphocytes # (A) 3.11 X 10*3/uL (0.90-5.00); Lymphocytes % (A) 38.3 %; MCH 28.3 pg (27.0-32.0); MCHC 32.3 g/dL (32.0-37.0); MCV 87.7 FL (80.0-97.0); Mean Platelet Volume 11.4 FL (9.5-12.2); Monocytes # (A) 0.53 X 10*3/uL (0.20-1.00); Monocytes % (A) 6.5 %; NRBC Per 100 WBC 0 X 10*3/uL (0.00-0.01); Neutrophils % (A) 51.8 %; Platelet Count 282 X 10*3/uL (140-440); RDW 14.4 % (11.5-14.5); WBC 8.12 X 10*3/uL (4.50-10.00)
[2023-05-30 15:25] LABS: ALT 62 U/L (8-44); AST 39 U/L (13-35); Albumin 4.5 g/dL (3.8-4.9); Albumin/Globulin Ratio 1.55 Ratio (1.60-3.17); Alkaline Phosphatase 39 U/L (41-126); BUN/Creat Ratio 25.43 Ratio (12.00-20.00); Blood Urea Nitrogen 17.8 mg/dL (9.0-27.0); Calcium 10.5 mg/dL (8.7-10.3); Carbon Dioxide 25.3 mmol/L (21.6-31.8); Chloride 101 mmol/L (96-109); Chol/HDL Ratio 4.68 Ratio; Globulin 2.9 g/dL (1.6-3.3); Glucose 94 mg/dL (70-110); LDL Cholesterol,Calculated 89.8 mg/dL (0.0-131.0); Potassium 4.9 mmol/L (3.5-5.5); Sodium 140 mmol/L (135-145); T4, Free (Free Thyroxine) 1.17 ng/dL (0.80-1.80); Total Bilirubin 0.4 mg/dL (0.3-1.2); Total Protein 7.4 g/dL (6.2-8.2)
== END | disposition home or self-care (01) ==
LOC: LABWHC1 10:34
PROVIDERS: ATTEND Internal Medicine Geriatric Medicine
DX: C50.912 Malignant neoplasm of unspecified site of left female breast (principal); E78.2 Mixed hyperlipidemia; E03.9 Hypothyroidism, unspecified; R73.9 Hyperglycemia, unspecified
CPT/HCPCS: 36415; 80053; 80061; 82043; 82570; 83036; 84439; 84443; 85025

== ENCOUNTER → 2023-06-04 | Outpatient (CLI) | payer MEDICARE ==
--- NOTE | 2023-06-06 14:20 | CT ---
EXAMINATION TYPE: CT chest wo con CT DLP: 560.2 mGycm, Automated exposure control for dose reduction was used. DATE OF EXAM: 06/04/2023 8:36 AM COMPARISON: CT chest 05/14/2022 and 05/16/2021 . CLINICAL INDICATION:Female, 72 years old with history of C50.412; PHH, lung nodule, history of breast cancer. TECHNIQUE: Multiple axial images were obtained through the chest. Sagittal and coronal reformats were created for review. Contrast used: mL of (None if empty) Oral contrast used: (None if empty) FINDINGS: Examination limited by lack of IV contrast. LOWER NECK: Stable appearance of the included thyroid. Left lobe likely absent. Right lobe appears he terogeneous with coarse calcifications.. MEDIASTINUM: No gross evidence of adenopathy. Small sliding hiatal hernia. HEART: Heart size upper normal.Moderate coronary artery calcification and/or stents. No appreciable pericardial effusion. VASCULATURE: Fusiform 4.3 cm ascending aortic aneurysm is stable. Mild aortic calcifications, mostly at the aortic valve and proximal aorta, and along the distal arch and distal descending portions. Pu lmonary trunk measures 3.5 cm, considered enlarged and can be seen with pulmonary hypertension. SOFT TISSUES/LYMPH NODES: Grossly stable left breast parenchymal changes most suggestive of scarring, with regional surgical clips again noted. No definite mass is suggested in the limits of the exam, h owever this should be correlated with findings of routine mammography. Surgical clip towards the left axilla with mild adjacent scarring, stable. No enlarged axillary nodes. LUNGS/ PLEURA: Mild bilateral upper lobe emphysematous change. Right lung shows stable adjacent 5 mm and 4 mm nodules in the RML, series 4 image 20. Stable 7 mm nodule in the anterior right lower lobe image 28. Left lung shows a stable appearance of curvilinear whorling parenchyma with a more focal no dular density seen on image 34 measuring up to 10 mm, with associated eccentric coarse calcification. Additionally, medial to this there is a 17 x 10 mm ovoid nodule again seen abutting the anterior ple ura adjacent to the heart which is stable. There is no new or enlarging pulmonary nodule, consolidati on, pleural effusion, or pneumothorax. AIRWAY: Central airways are patent. MUSCULOSKELETAL: No acute osseous abnormality. Moderate disc degeneration changes are present through out the included thoracolumbar spine. UPPER ABDOMEN: Diffuse low-attenuation of the liver parenchyma suggesting mild steatosis. IMPRESSION: 1. Continued stable bilateral pulmonary nodularity. 2. No new or enlarging nodules identified. 3. Otherwise stable exam.
== END | disposition home or self-care (01) ==
LOC: RADCTMAIN 08:20
PROVIDERS: ATTEND Internal Medicine Hematology & Oncology
DX: C50.412 Malignant neoplasm of upper-outer quadrant of left female breast (principal); R91.1 Solitary pulmonary nodule
CPT/HCPCS: 71250

== ENCOUNTER 2023-08-29 04:40 | Emergency (ER) | payer MEDICARE ==
[2023-08-29 05:05] VITALS: TEMP 98.4
--- NOTE | 2023-08-29 05:19 | ED ---
General Adult HPI - General Source: patient Mode of arrival: ambulatory Limitations: no limitations <Jovan Howard - Last Filed: 08/29/23 07:00> - General Source: patient, RN notes reviewed, old records reviewed <Jesús Hussein - Last Filed: 08/29/23 08:38> - General Chief complaint: Abdominal Pain Stated complaint: Diverticulitis Flare-up Time Seen by Provider: 08/29/23 05:04 - History of Present Illness Initial comments: Dictation was produced using [employer] dictation software. please excuse any grammatical, word or spelling errors. Chief Complaint: 72-year-old female with abdominal pain History of Present Illness: Patient 72-year-old female she has past medical history of diverticulitis. Patient concerned that she has diverticulitis today. For the last several hours she has been having lower abdominal pain similar to her usual diverticulitis pain. Denies any fever, chills or night sweats. She is passing gas but has not had a bowel movement in 1 to 2 days. The ROS documented in this emergency department record has been reviewed and confirmed by me. Those systems with pertinent positive or negative responses have been documented in the HPI. All other systems are other negative and/or noncontributory. (Jovan Howard) - Related Data Home Medications Medication Instructions Recorded Confirmed Atorvastatin [Lipitor] 40 mg PO DAILY 08/10/14 03/15/21 Enalapril [Vasotec] 20 mg PO BID 08/10/14 03/15/21 Indapamide [Lozol] 2.5 mg PO DAILY 08/10/14 03/15/21 Biotin 10,000 mcg PO DAILY 04/28/18 03/15/21 Calcium Carb-Vit D 250Mg-125Un 1 each PO DAILY 04/28/18 03/15/21 [Oscal 250+D] Fish Oil/Dha/Epa [Fish Oil 1,200 1 each PO DAILY 04/28/18 03/15/21 mg Fish Oil] Glucosamine/Chondr Wilson A Sod [Osteo 1 each PO DAILY 04/28/18 03/15/21 Bi-Flex Caplet] Metoprolol Tartrate [Lopressor] 100 mg PO DAILY 04/28/18 03/15/21 Multivitamins, Thera [Multivitamin 1 tab PO DAILY 04/28/18 03/15/21 (formulary)] Anastrozole [Arimidex] 1 mg PO DAILY 03/15/21 03/15/21 Previous Rx's Medication Instructions Recorded Amoxic-Pot Clav 875-125Mg 1 tab PO BID 10 Days #20 tab 08/29/23 [Augmentin 875-125] Allergies Allergy/AdvReac Type Severity Reaction Status Date / Time Sulfa (Sulfonamide Allergy Itching Verified 08/29/23 04:53 Antibiotics) Review of Systems ROS Other: All systems not noted in ROS Statement are negative. <Jovan Howard - Last Filed: 08/29/23 07:00> ROS Other: All systems not noted in ROS Statement are negative. <Jesús Hussein - Last Filed: 08/29/23 08:38> ROS Statement: Those systems with pertinent positive or pertinent negative responses have been documented in the HPI. Past Medical History Past Medical History: Cancer, Hyperlipidemia, Hypertension Additional Past Medical History / Comment(s): Hx of hepatitis /TX ;unknown type History of Any Multi-Drug Resistant Organisms: None Reported Past Surgical History: Hysterectomy Additional Past Surgical History / Comment(s): partial thyroidectomy, rt rotator cuff repair Past Anesthesia/Blood Transfusion Reactions: No Reported Reaction Additional Past Anesthesia/Blood Transfusion Reaction / Comment(s): PT STATES WOKE UP DURING LAST COLONOSCOPY Past Psychological History: No Psychological Hx Reported Smoking Status: Never smoker Past Alcohol Use History: None Reported Past Drug Use History: None Reported - Past Family History Mother Family Medical History: No Reported History <Jovan Howard - Last Filed: 08/29/23 07:00> General Exam Limitations: no limitations <Jovan Howard - Last Filed: 08/29/23 07:00> - General Exam Comments Initial Comments: PHYSICAL EXAM: General Impression: Alert and oriented x3, not in acute distress HEENT: Normocephalic atraumatic, extra-ocular movements intact, pupils equal and reactive to light bilaterally, mucous membranes moist. Cardiovascular: Heart regular rate and rhythm Chest: Able to complete full sentences, no retractions, no tachypnea Abdomen: abdomen soft, large pannus, mild palpatory tenderness to the lower ab domen, non-distended, no organomegaly Musculoskeletal: Pulses present and equal in all extremities, no peripheral edema Motor: no focal deficits noted Neurological: CN II-XII grossly intact, no focal motor or sensory deficits noted Skin: Intact with no visualized rashes Psych: Normal affect and mood (Jovan Howard) Course Vital Signs 08/29/23 04:52 Temperature 98.4 F Pulse Rate 77 Respiratory 18 Rate Blood Pressure 134/95 O2 Sat by Pulse 96 Oximetry Medical Decision Making - Lab Data Result diagrams: 08/29/23 05:22 08/29/23 05:22 <Jovan Howard - Last Filed: 08/29/23 07:00> - Lab Data Result diagrams: 08/29/23 05:22 08/29/23 05:22 <Jesús Hussein - Last Filed: 08/29/23 08:38> - Medical Decision Making Was pt. sent in by a medical professional or institution (, PA, [employer]NEY, urgent care, hospital, or senior living...) When possible be specific @ -No Did you speak to anyone other than the patient for history (EMS, parent, family, police, friend...)? What history was obtained from this source @ -No Did you review nursing and triage notes (agree or disagree)? Why? @ -I reviewed and agree with nursing and triage notes Were old charts reviewed (outside hosp., previous admission, EMS record, old E KG, old radiological studies, urgent care reports/EKG's, senior living records)? Report findings @ -No old charts were reviewed Differential Diagnosis (chest pain, altered mental status, abdominal pain women, abdominal pain men, vaginal bleeding, musculoskeletal, weakness, fever, dyspnea, syncope, headache, dizziness, GI bleed, back pain, seizure, CVA, palpatations, mental health)? @ -Differential Abdominal Pain Women: Appendicitis, Cholecystitis, diverticulosis, ischemic bowel, pancreatitis, hepatitis, UTI, gastroenteritis, AAA, incarcerated hernia, bowel obstruction, constipation, inflammatory bowel, hepatitis, peptic ulcer disease, splenic infarction, perforated viscus, vulvitis, ovarian torsion, PID, kidney stone, placenta abruption, this is not meant to be an all-inclusive list EKG interpreted by me (3pts min.). @ -None done X-rays interpreted by me (1pt min.). @ -None done CT interpreted by me (1pt min.). @ -CT abdomen pelvis pending U/S interpreted by me (1pt. min.). @ -None done What testing was considered but not performed or refused? (CT, X-rays, U/S, labs)? Why? @ -None What meds were considered but not given or refused? Why? @ -None Did you discuss the management of the patient with other professionals (professionals i.e. DrMary, PA, DE[employer]NEY, lab, RT, psych nurse, social security specialist, custom motorcycle painter, teacher, community arts officer, watch caser)? Give summary @ -No Was smoking cessation discussed for >3mins.? @ -No Was critical care preformed (if so, how long)? @ -No Were there social determinants of health that impacted care today? How? (Homelessness, low income, unemployed, alcoholism, drug addiction, transportation, low edu. Level, literacy, decrease access to med. care, half-way, rehab)? @ -No Was there de-escalation of care discussed even if they declined (Discuss DNR or withdrawal of care, Hospice)? DNR status @ -No What co-morbidities impacted this encounter? (DM, HTN, Smoking, COPD, CAD, Cancer, CVA, ARF, Chemo, Hep., AIDS, mental health diagnosis, sleep apnea, mo rbid obesity)? @ -None Was patient admitted / discharged? Hospital course, mention meds given and r oute, prescriptions, significant lab abnormalities, going to OR and other pertinent info. @ -72-year-old female presents to the emergency department for abdominal pain. Vital signs upon arrival are within acceptable limits. Laboratory evaluation is unremarkable. Pending CT evaluation. Patient care signed out to Dr. Hussein at 7:00 AM. Undiagnosed new problem with uncertain prognosis? @ -No Drug Therapy requiring intensive monitoring for toxicity (Heparin, Nitro, Insulin, Cardizem)? @ -No Were any procedures done? @ -No Diagnosis/symptom? Acute, or Chronic, or Acute on Chronic? Uncomplicated (without systemic symptoms) or Complicated (systemic symptoms)? @ -Abdominal pain (Jenellen,Jovan D) Patient signed out to me pending results of imaging. Briefly, patient presents with lower abdominal pain with constipation for 1 day. Has a history of diverticulitis. Laboratory studies so far are unremarkable. Patient was pending CT imaging. CT abdomen pelvis as interpreted by myself reveals uncomplicated diverticulitis. I updated the patient. She expressed understanding. Patient will be started on Augmentin. She was in agreement this plan. I will provide the patient with a prescription for Augmentin. I instructed the patient to follow up with their PCP in the next 1-3 days.. I explained that the patient should return to the emergency department if they experience any worsening symptoms. Strict return precautions were discussed with the patient. The patient expressed understanding of these instructions. I answered all questions that the patient had. The patient was discharged home in good condition with their prescriptions and follow up information. Diagnosis/symptom? @ -Diverticulitis Acute, or Chronic, or Acute on Chronic? @ -Acute on chronic Uncomplicated (without systemic symptoms) or Complicated (systemic symptoms)? @ -Complicated Side effects of treatment? @ -None Exacerbation, Progression, or Severe Exacerbation] @ -No Poses a threat to life or bodily function? @ -Unlikely (Jesús Hussein) - Lab Data Lab Results 08/29/23 08/29/23 Range/Units 05:22 05:22 WBC 7.9 (3.8-10.6) k/uL RBC 5.06 (3.80-5.40) m/uL Hgb 14.8 (11.4-16.0) gm/dL Hct 45.6 (34.0-46.0) % MCV 90.2 (80.0-100.0) fL MCH 29.3 (25.0-35.0) pg MCHC 32.5 (31.0-37.0) g/dL RDW 14.6 (11.5-15.5) % Plt Count 268 (150-450) k/uL MPV 9.4 Neutrophils % 55 % Lymphocytes % 34 % Monocytes % 6 % Eosinophils % 3 % Basophils % 1 % Neutrophils # 4.3 (1.3-7.7) k/uL Lymphocytes # 2.7 (1.0-4.8) k/uL Monocytes # 0.4 (0-1.0) k/uL Eosinophils # 0.2 (0-0.7) k/uL Basophils # 0.1 (0-0.2) k/uL Sodium 137 (137-145) mmol/L Potassium 3.8 (3.5-5.1) mmol/L Chloride 104 (98-107) mmol/L Carbon Dioxide 20 L (22-30) mmol/L Anion Gap 13 mmol/L BUN 22 H (7-17) mg/dL Creatinine 0.51 L (0.52-1.04) mg/dL Est GFR (CKD-EPI)AfAm >90 (>60 ml/min/1.73 sqM) Est GFR (CKD-EPI)NonAf >90 (>60 ml/min/1.73 sqM) Glucose 147 H (74-99) mg/dL Calcium 9.9 (8.4-10.2) mg/dL Disposition <Jovan Howard - Last Filed: 08/29/23 07:00> Is patient prescribed a controlled substance at d/c from ED?: No Time of Disposition: 08:34 <Jesús Hussein - Last Filed: 08/29/23 08:38> Clinical Impression: Diverticulitis Disposition: HOME SELF-CARE Condition: Good Instructions (If sedation given, give patient instructions): Diverticulitis (ED) Prescriptions: Amoxic-Pot Clav 875-125Mg [Augmentin 875-125] 1 tab PO BID 10 Days #20 tab Referrals: Santana Jones MD [Primary Care Provider] - 1-2 days
[2023-08-29 06:10] LABS: Basophils # (A) 0.1 k/uL (0-0.2); Basophils % (A) 1 %; Eosinophils # (A) 0.2 k/uL (0-0.7); Eosinophils % (A) 3 %; HCT 45.6 % (34.0-46.0); HGB 14.8 gm/dL (11.4-16.0); Lymphocytes # (A) 2.7 k/uL (1.0-4.8); Lymphocytes % (A) 34 %; MCH 29.3 pg (25.0-35.0); MCHC 32.5 g/dL (31.0-37.0); MCV 90.2 fL (80.0-100.0); Mean Platelet Volume 9.4; Monocytes # (A) 0.4 k/uL (0-1.0); Monocytes % (A) 6 %; Neutrophils # (A) 4.3 k/uL (1.3-7.7); Neutrophils % (A) 55 %; Platelet Count 268 k/uL (150-450); RBC 5.06 m/uL (3.80-5.40); RDW 14.6 % (11.5-15.5); WBC 7.9 k/uL (3.8-10.6)
[2023-08-29 06:27] LABS: African American GFR (CKD) >90 (>60 ml/min/1.73 sqM); Anion Gap 13 mmol/L; Blood Urea Nitrogen 22 mg/dL (7-17); Calcium 9.9 mg/dL (8.4-10.2); Carbon Dioxide 20 mmol/L (22-30); Chloride 104 mmol/L (98-107); Glucose 147 mg/dL (74-99); Non-African American GFR(CKD) >90 (>60 ml/min/1.73 sqM); Sodium 137 mmol/L (137-145)
[2023-08-29] MEDS: MORPHINE SULFATE 4 MG/ML SYRINGE IV STA (06:30)
[2023-08-29 06:31] LABS: Potassium 3.8 mmol/L (3.5-5.1)
[2023-08-29] MEDS: MORPHINE SULFATE 4 MG/ML SYRINGE IVP STA (08:26)
--- NOTE | 2023-08-29 08:27 | CT ---
EXAMINATION TYPE: CT abdomen pelvis w con CT DLP: 1903.4 mGycm, Automated exposure control for dose reduction was used. DATE OF EXAM: 08/29/2023 7:04 AM COMPARISON: None. CLINICAL INDICATION:Female, 72 years old with history of abdominal pain; Abdominal pain TECHNIQUE: Axial CT abdomen pelvis w con;Sagittal and coronal reformats were created on a separate w orkstation. Contrast used:100 ml mL of Isovue 300 with IV Contrast, (none if empty) Oral contrast used: without Oral Contrast (none if empty) FINDINGS: LOWER CHEST: Unremarkable ABDOMEN LIVER: Unremarkable GALLBLADDER AND BILE DUCTS: Unremarkable. PANCREAS: Unremarkable. SPLEEN: Unremarkable. ADRENAL GLANDS: Unremarkable. KIDNEYS AND URETERS: No evidence of hydronephrosis or renal calculus. The ureters are unremarkable. PELVIS BLADDER: Unremarkable REPRODUCTIVE: Unremarkable. ABDOMEN & PELVIS STOMACH AND BOWEL: Stomach and duodenum are unremarkable. Scattered diverticula are noted throughout the sigmoid colon. Sigmoid: Wall thickening and inflamed diverticula. No free air. No free fluid. P ericolonic fat stranding. No evidence of bowel obstruction. PERITONEUM/RETROPERITONEUM: No evidence of pneumoperitoneum or free fluid. VASCULATURE: No evidence of aortic aneurysm. MUSCULOSKELETAL: No acute osseous abnormalities LYMPH NODES: No gross evidence for lymphadenopathy. SOFT TISSUE/ABDOMINAL WALL: Unremarkable IMPRESSION: 1. . Diverticulitis manifested as Sigmoid colonic Wall thickening and inflamed diverticula. No carmen e air. No free fluid. Pericolonic fat stranding.
[2023-08-29] MEDS: AMOXIC-POT CLAV 875-125MG 1 EACH TAB PO STA (08:41)
[2023-08-29] MEDS: ONDANSETRON 4 MG ODT STARTER PACK 2 TAB BTL PO STA (08:42)
[2023-08-29] MEDS: ACET/COD 300 MG/30 MG STARTER PACK 6 TAB BTL PO STA (08:42)
[2023-08-29 09:19] VITALS: BP 133/95; PULSE 79; RESP 17
== END 2023-08-29 08:50 | disposition home or self-care (01) ==
LOC: EC 04:40
DX: K57.12 Diverticulitis of small intestine without perforation or abscess without bleeding (principal); Z88.2 Allergy status to sulfonamides
CPT/HCPCS: 36415; 80048; 85025; 74177; 99284; 96374; 96376; J2270; S0119; Q9967

== ENCOUNTER → 2023-10-22 | Outpatient (CLI) | payer MEDICARE ==
[2023-10-22 15:42] LABS: Basophils # (A) 0.06 X 10*3/uL (0.00-0.10); Basophils % (A) 0.7 %; Eosinophils # (A) 0.28 X 10*3/uL (0.04-0.35); Eosinophils % (A) 3.4 %; HCT 48.1 % (37.2-46.3); HGB 15.6 g/dL (12.0-15.0); Lymphocytes # (A) 2.79 X 10*3/uL (0.90-5.00); Lymphocytes % (A) 34.2 %; MCH 29.2 pg (27.0-32.0); MCHC 32.4 g/dL (32.0-37.0); MCV 89.9 FL (80.0-97.0); Mean Platelet Volume 11.8 FL (9.5-12.2); Monocytes % (A) 6.1 %; NRBC Per 100 WBC 0 X 10*3/uL (0.00-0.01); Neutrophils # (A) 4.49 X 10*3/uL (1.80-7.70); Neutrophils % (A) 55.1 %; Platelet Count 279 X 10*3/uL (140-440); RBC 5.35 X 10*6/uL (4.10-5.20); RDW 13.6 % (11.5-14.5); WBC 8.16 X 10*3/uL (4.50-10.00)
[2023-10-22 16:08] LABS: ALT 83 U/L (8-44); AST 60 U/L (13-35); Albumin 4.6 g/dL (3.8-4.9); Albumin/Globulin Ratio 1.64 Ratio (1.60-3.17); Alkaline Phosphatase 41 U/L (41-126); Blood Urea Nitrogen 16.8 mg/dL (9.0-27.0); Calcium 11.2 mg/dL (8.7-10.3); Chloride 101 mmol/L (96-109); Chol/HDL Ratio 5.22 Ratio; Globulin 2.8 g/dL (1.6-3.3); Glucose 122 mg/dL (70-110); LDL Cholesterol,Calculated 94.7 mg/dL (0.0-131.0); Potassium 4.2 mmol/L (3.5-5.5); Sodium 140 mmol/L (135-145); T4, Free (Free Thyroxine) 1.27 ng/dL (0.80-1.80); Total Bilirubin 0.4 mg/dL (0.3-1.2); Total Protein 7.4 g/dL (6.2-8.2)
== END | disposition home or self-care (01) ==
LOC: LABWHC1 10:05
PROVIDERS: ATTEND Internal Medicine Geriatric Medicine
DX: E78.2 Mixed hyperlipidemia (principal); E03.9 Hypothyroidism, unspecified; R73.9 Hyperglycemia, unspecified; Z85.3 Personal history of malignant neoplasm of breast
CPT/HCPCS: 36415; 80053; 80061; 83036; 84439; 84443; 85025

== ENCOUNTER → 2023-11-11 | Outpatient (CLI) | payer MEDICARE ==
[2023-11-11 19:42] LABS: Blood Urea Nitrogen 13.8 mg/dL (9.0-27.0); Carbon Dioxide 26.5 mmol/L (21.6-31.8); Chloride 100 mmol/L (96-109); Glucose 94 mg/dL (70-110); Potassium 4.3 mmol/L (3.5-5.5); Sodium 140 mmol/L (135-145)
[2023-11-11 19:43] LABS: ALT 77 U/L (8-44); AST 48 U/L (13-35); Albumin 4.6 g/dL (3.8-4.9); Albumin/Globulin Ratio 1.77 Ratio (1.60-3.17); Alkaline Phosphatase 42 U/L (41-126); Calcium 10.3 mg/dL (8.7-10.3); Globulin 2.6 g/dL (1.6-3.3); Total Bilirubin 0.5 mg/dL (0.3-1.2); Total Protein 7.2 g/dL (6.2-8.2)
== END | disposition home or self-care (01) ==
LOC: LABWHC1 11:36
PROVIDERS: ATTEND Internal Medicine Geriatric Medicine
DX: R79.9 Abnormal finding of blood chemistry, unspecified (principal)
CPT/HCPCS: 36415; 80053; 83970

== ENCOUNTER → 2024-06-09 | Outpatient (CLI) | payer MEDICARE ==
--- NOTE | 2024-06-09 09:31 | CT ---
EXAMINATION TYPE: CT chest wo con DATE OF EXAM: 06/09/2024 COMPARISON: 06/04/2023 HISTORY: 73-year-old female C5 0.412 Hx lung nodules, breast ca, R91.1 TECHNIQUE: Contiguous axial scanning of the chest without IV contrast. Coronal/sagittal reconstructio ns performed. CT DLP: 597mGycm. Automatic exposure control utilized for a dose reduction. FINDINGS: Postsurgical change subareolar left breast. Heart normal size without pericardial effusion. Proximal LAD coronary calcifications are present. Aneurysm ascending aorta at 4.4 cm may be slightly increased from 4.3 cm. Conventional arch vessel br anching anatomy. Left thyroid gland appears to be absent. Possible underlying nodule right thyroid lobe causing slight mass effect and leftward deviation of the trachea, similar to prior. Thyroid ultrasound can further evaluate. No thoracic lymphadenopathy by CT size criteria. Left lower lobe nodules measuring 1.7 cm and 1 cm remain unchanged. There appears to be chronic pleur al parenchymal scarring and some volume loss here in the left lower lobe. Additional few nodules right mid lung measuring up to 7 mm also remain unchanged. No consolidation or pleural effusion. Tiny hiatal hernia. Diffuse diminished attenuation of the hepatic parenchyma. Bones: Facet arthropathy mid thoracic spine. IMPRESSION: 1. Bilateral mid and lower lung pulmonary nodules measuring up to 7 mm on the right and 1.7 cm on the left appear unchanged from 06/04/2023. No new suspicious pulmonary nodules are seen. 2. Similar pleural parenchymal scarring in the left lower lobe with some volume loss. 3. Possible underlying nodule right lobe of the thyroid gland with some mass effect and leftward guadalupe ation of the trachea redemonstrated. Thyroid ultrasound to further evaluate if no known diagnosis. Th e left lobe appears surgically absent. 4. Mild aneurysm ascending aorta 4.4 cm, fairly similar compared to 4.3 cm, previously. 5. Tiny hiatal hernia and hepatic steatosis. [facility], , 06/09/2024 9:29 AM
== END | disposition home or self-care (01) ==
LOC: RADCTMAIN 08:31
PROVIDERS: ATTEND Internal Medicine Hematology & Oncology
DX: C50.412 Malignant neoplasm of upper-outer quadrant of left female breast (principal); I10 Essential (primary) hypertension; K44.9 Diaphragmatic hernia without obstruction or gangrene; K76.0 Fatty (change of) liver, not elsewhere classified; R91.8 Other nonspecific abnormal finding of lung field; Z85.3 Personal history of malignant neoplasm of breast; Z71.3 Dietary counseling and surveillance
CPT/HCPCS: 71250

== ENCOUNTER → 2024-06-23 | Outpatient (CLI) | payer MEDICARE ==
--- NOTE | 2024-06-23 08:28 | US ---
EXAMINATION TYPE: US thyroid st tissue head/neck DATE OF EXAM: 06/23/2024 COMPARISON: CT Chest 06/09/2024 CLINICAL INDICATION: Female, 73 years old with history of E04.1 NONTOXIC SINGLE THYROID NODULE; Nodul e per order. Hx left thyroid lobe removed many years ago due to a hotspot. TECHNIQUE: Grayscale and color Doppler imaging of the thyroid gland. FINDINGS: GLAND SIZE: Right Lobe: 5.9 x 3.0 x 2.8 cm Overall Parenchyma: heterogeneous, limiting evaluation for identifying nodules Left Lobe: Surgically absent cm Isthmus Thickness: Not seen NODULES RIGHT: # of nodules measured on right: 2 calcified-appearing areas. Difficult to distinguish any additional nodules, gland appears heterogeneous. LEFT: # of nodules measured on left: 0 ISTHMUS: # of nodules measured in the isthmus: 0 Bilateral neck scanned, no evidence of lymphadenopathy. IMPRESSION: Heterogeneous right thyroid lobe with 2 calcified 5 mm nodules. No significant greater than 5 mm merrick d nodules. Left thyroid lobe is surgically absent. [facility], , 06/23/2024 8:25 AM
== END | disposition home or self-care (01) ==
LOC: RADUSWWP 06:48
PROVIDERS: ATTEND Internal Medicine Hematology & Oncology
DX: E04.1 Nontoxic single thyroid nodule (principal)
CPT/HCPCS: 76536

== ENCOUNTER → 2024-12-07 | Outpatient (CLI) | payer MEDICARE ==
--- NOTE | 2024-12-07 09:33 | BD ---
EXAMINATION TYPE: Axial Bone Density DATE OF EXAM: 12/07/2024 CLINICAL HISTORY: 74 years old Female. 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 Bone mineral density as measured about the Lumbar spine is: ----- L1-L4(G/cm2): 1.372 T Score Values are as follows: ----- L1: 1.4 ----- L2: 0.7 ----- L3: 2.7 ----- L4: 1.4 ----- L1-L4: 1.6 Z Score Values are as follows: ----- L1: 2.0 ----- L2: 1.3 ----- L3: 3.3 ----- L4: 2.0 ----- L1-L4: 2.2 Bone mineral density has: Decreased -4.0% since study of: 11-12-22 Bone mineral density about the R hip (g/cm2): 1.177 Bone mineral density about the L hip (g/cm2): 1.228 T Score values are as follows: -----R Neck: 0.0 -----L Neck: 0.2 -----R Total: 1.3 -----L Total: 1.8 Z Score values are as follows: -----R Neck: 1.0 -----L Neck: 1.3 -----R Total: 2.2 -----L Total: 2.6 Bone mineral density has: Increased 1.0% since study of: 11-12-22 FRAX%s: The graph provided illustrates a 6.9% chance for a major osteoporotic fx and a 0.4% chance fo r the hips probability for fx in 10 years time. IMPRESSION: Normal (Values between +1 and -1 indicate normal bone mass). Consider repeating this study in 5 year s or sooner if there is some new clinical indication. NOTE: T-SCORE=SD OF THE YOUNG ADULT MEAN. [facility], , 12/07/2024 9:30 AM
== END | disposition home or self-care (01) ==
LOC: RADBDWWP 08:55
PROVIDERS: ATTEND Internal Medicine Hematology & Oncology
DX: M81.0 Age-related osteoporosis without current pathological fracture (principal); C50.412 Malignant neoplasm of upper-outer quadrant of left female breast; Z79.890 Hormone replacement therapy
CPT/HCPCS: 77080